=== PATIENT | female | born 1985 | race Caucasian/White ===

== ENCOUNTER → 2021-07-24 | Outpatient (CLI) | payer BC ==
[2021-07-28 13:08] LABS: HPV 16 Negative (Negative); HPV 18 Negative (Negative); HPV OTHER HR TYPES Negative (Negative)
== END | disposition home or self-care (01) ==
LOC: LAB 13:25 → LAB SHORT 13:25
PROVIDERS: Family Medicine
DX: Z01.419 Encounter for gynecological examination (general) (routine) without abnormal findings (principal)
CPT/HCPCS: 87624; G0123

== ENCOUNTER 2022-12-24 10:20 | Day surgery (SDC) | payer BC ==
[2022-12-24 11:10] VITALS: BP 148/87
--- NOTE | 2022-12-24 11:12 | NUR ---
12/24/22 1112 Armendariz Miriam PATIENT REPORTS SHE TOOK HER OZEMPIC YESTERDAY. RN KIMMY SPOKE TO DR GUTIÉRREZ AND DR NAVAS AND IT WAS DECIDED THAT PROCEDURE IS TO BE CANCELLED AND RESCHEDULED. PATIENT ADVISED TO HOLD OZEMPIC FOR 7 DAYS PRIOR TO SURGERY ONCE IT IS RESCHEDULED.
== END 2022-12-24 11:19 | disposition home or self-care (01) ==
LOC: ORSCSDS 10:20
DX: G56.01 Carpal tunnel syndrome, right upper limb (principal); Z53.9 Procedure and treatment not carried out, unspecified reason

== ENCOUNTER 2024-01-27 07:17 | Day surgery (SDC) | payer BC ==
[~2024-01-27] VITALS: Ht 175.3 cm; Wt 104.3 kg
[~2024-01-27 07:17] MED LIST: FentaNYL Citrate 50 MCG/ML 2 ML Injection ONE; Midazolam HCl 1MG / ML 2ML Vial ONE; NS 500 ML IV ONE
[2024-01-27] MEDS ORDERED: NS 0 ML IV ONE (07:23)
[2024-01-27] MEDS ORDERED: CeFAZolin Sodium 2,000 MG VIAL ONE (07:23)
[2024-01-27] MEDS ORDERED: Cyclobenzaprine5 MG (07:33)
[2024-01-27] MEDS ORDERED: BUPROPION XL150 M1 PO (07:33)
[2024-01-27] MEDS ORDERED: VENLAFAXINE HC225 MG PO (07:33)
[2024-01-27] MEDS ORDERED: PREGABALIN75 MG PO (07:33)
[2024-01-27] MEDS ORDERED: OZEMPIC1 MG/0.72 SQ (07:34)
[2024-01-27] MEDS ORDERED: IBUP200 PO (07:45)
[2024-01-27] MEDS ORDERED: METF500 PO (07:45)
[2024-01-27] MEDS ORDERED: NS 500 ML IV ONE (07:58)
[2024-01-27] MEDS ORDERED: Lidocaine 2%-Epineph 1:200000 20 ML SDV INJ ONE ×2 (09:02)
[2024-01-27] MEDS ORDERED: propofoL 20 ML IV ONE (09:03)
[2024-01-27 09:29] VITALS: BP 133/78
== END 2024-01-27 10:06 | disposition home or self-care (01) ==
LOC: ORSCSDS 07:17
PROVIDERS: Orthopaedic Surgery
PROC: 01N50ZZ Release Median Nerve, Open Approach (ICD-10-PCS; principal; 2024-01-27 08:45)
DX: G56.01 Carpal tunnel syndrome, right upper limb (principal); Z87.891 Personal history of nicotine dependence; E11.9 Type 2 diabetes mellitus without complications; E66.9 Obesity, unspecified; Z68.34 Body mass index [BMI] 34.0-34.9, adult; F41.9 Anxiety disorder, unspecified; F32.A Depression, unspecified; Z79.899 Other long term (current) drug therapy; Z79.84 Long term (current) use of oral hypoglycemic drugs; Z79.85 Long-term (current) use of injectable non-insulin antidiabetic drugs
CPT/HCPCS: 82947; J0690; J2250; J2704; J3010; J7040